=== PATIENT | female | born 1950 | race Caucasian/White ===

== ENCOUNTER → 2018-01-28 | Outpatient (CLI) | payer MEDICARE ==
[~2018-01-28] MED LIST: ASPIR 8181 MG PO; ATORVASTATIN CA20 MG PO; CARVEDILOL25 MG PO; CATAPRES0.1 MG PO; CLOPIDOGREL75 MG PO; FORTAMET1000 MG PO; GLUCOTROL10 MG PO; KEFLEX500 MG PO; LIDODERM700 MG TOP; LISINOPRIL40 MG PO; NORCO 5-325 TA1 EACH PO; NORVASC10 MG PO; TYLENOL WITH C1 EACH PO; ULTRAM50 MG PO; ZOFRAN ODT4 MG SL
--- NOTE | 2018-01-29 16:00 | Diagnostic Imaging Report ---
#[id number] - MGSCRBIL #BILATERAL DIGITAL SCREENING MAMMOGRAM WITH CAD: 01/28/2018 CLINICAL: Routine screening. Comparison is made to exams dated: 04/01/2016 mammogram and 06/23/2013 mammogram - [facility]. Current study contains 4 films. There are scattered fibroglandular elements in both breasts. Current study was also evaluated with a Computer Aided Detection (CAD) system. There are benign vascular calcifications and calcifications in both breasts. No significant masses, calcifications, or other findings are seen in either breast. There has been no significant interval change. IMPRESSION: BENIGN There is no mammographic evidence of malignancy. A 1 year screening mammogram is recommended. The patient will be notified by letter of the results. Jus ozuna/tejinder:01/29/2018 13:24:51 Gas Examiner: Monica SANZ(R)(M), [facility] letter sent: Compared to Prior B9 Mammogram BI-RADS: 2 Benign
== END ==
LOC: MAMMO 10:26
PROVIDERS: ATTEND Internal Medicine
DX: Z12.31 Encounter for screening mammogram for malignant neoplasm of breast (principal)
CPT/HCPCS: 77067

== ENCOUNTER → 2019-01-14 | Outpatient (CLI) | payer MEDICARE | LOC: MAMMO 09:02 | PROVIDERS: ATTEND Internal Medicine | DX: Z12.31 Encounter for screening mammogram for malignant neoplasm of breast (principal) | CPT/HCPCS: 77067 ==

== ENCOUNTER → 2019-02-15 | Outpatient (CLI) | payer MEDICARE ==
[~2019-02-15] MED LIST changes: +IOPAMIDOL 370 MG/ML 200 ML INFUS..BTL INJ ONE; +SODIUM CHLORIDE 0.9% 100 ML 100 ML ONE
[2019-02-15 14:27] LABS: BLOOD UREA NITROGEN 14 mg/dL (7-26); BUN/CREATININE RATIO 18 (6-25); CREATININE, SERUM 0.77 mg/dL (0.57-1.11); EST GLOMERULAR FILTRATION RATE > 60 ML/MIN (60-)
--- NOTE | 2019-02-16 09:53 | Diagnostic Imaging Report ---
Examination: Cervical CT Angiogram with Contrast Clinical indication:Carotid stenosis. Comparison studies:None Technique: Axial images were obtained from the thoracic inlet. Coronal and sagittal images reconstructed from the axial data. Intravenous contrast: 100 cc of Isovue-[id number]. Computer generated maximum intensity projection and 3D images were performed of the bilateral carotid bifurcations and the aortic arch with bilateral common carotid and cervical internal carotid arteries on a separate workstation. Degree of stenosis at the carotid bulbs, if present, will be calculated using NASCET criteria where the smallest diameter at the location of stenosis is compared to the diameter of the more distal non-diseased vessel lumen. Dose modulation, iterative reconstruction, and/or weight based adjustment of the mA/kV was utilized to reduce the radiation dose to as low as reasonably achievable. Findings: Aortic arch and major vessels: Patent. Kink in the proximal right subclavian artery. Common carotid arteries: Patent. Focal ulcerative plaque at the posterior lateral aspect of the distal left common carotid artery. Cervical carotid bifurcations: Right: Patent. Nonstenotic punctate ossific plaque medially and on the right. Left :Patent. There is nonstenotic focal soft plaque at the lateral aspect, which is only visible on the coronal and sagittal reconstructed images. Internal carotid arteries: Right: Patent. Left: Patent. Vertebral arteries: Patent. Direct origin of the left vertebral artery from the aortic arch and high entry at the C4-C5 level. [place]: Anterior communicating artery is present. Right posterior communicating artery is present. The left posterior indicating artery is not visualized. IMPRESSION: 1. No cervical arterial stenosis or occlusion. 2. Focal ulcerative plaque at the posterolateral distal left common carotid artery. 3. Nonstenotic soft plaque of the lateral aspect of the left carotid bifurcation. Signed by: Dr. Courtney Valencia M.D. on 02/16/2019 9:50 AM
== END ==
LOC: CT 13:45
PROVIDERS: ATTEND Internal Medicine Cardiovascular Disease
DX: I65.23 Occlusion and stenosis of bilateral carotid arteries (principal); I25.10 Atherosclerotic heart disease of native coronary artery without angina pectoris
CPT/HCPCS: 36415; 70498; 82565; 84520; Q9967

== ENCOUNTER 2019-12-12 11:00 | Outpatient (RCR) | payer MEDICARE ==
[~2019-12-12 11:00] MED LIST changes: -IOPAMIDOL 370 MG/ML 200 ML INFUS..BTL INJ ONE; -SODIUM CHLORIDE 0.9% 100 ML 100 ML ONE
== END 2020-01-03 ==
LOC: PT 11:00
PROVIDERS: ATTEND Specialist
DX: M17.12 Unilateral primary osteoarthritis, left knee (principal); M25.562 Pain in left knee; M25.662 Stiffness of left knee, not elsewhere classified; M62.81 Muscle weakness (generalized); R26.9 Unspecified abnormalities of gait and mobility

== ENCOUNTER → 2020-06-14 | Outpatient (CLI) | payer MEDICARE | LOC: MAMMO 12:00 | PROVIDERS: ATTEND Internal Medicine | DX: R31.21 Asymptomatic microscopic hematuria (principal) | CPT/HCPCS: 77067 ==